=== PATIENT | female | born 2005 | race Hispanic/Latino ===

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

== ENCOUNTER → 2023-03-25 | Outpatient (CLI) | payer OTHER ==
[2023-03-25 12:37] LABS: BASOPHILS # (AUTO) 0.02 K/uL (0.00-0.20); BASOPHILS % (AUTO) 0.2 % (0.0-5.0); EOSINOPHILS # (AUTO) 0.05 K/uL (0.00-0.70); EOSINOPHILS % (AUTO) 0.5 % (0.0-8.0); HEMATOCRIT 39.4 % (36-48); IMMATURE GRANULOCYTE ABSOLUTE 0.02 K/uL (0-1); LYMPHOCYTES # (AUTO) 2.8 K/uL (1.0-4.8); LYMPHOCYTES % (AUTO) 25.7 % (21.0-51.0); MEAN CORPUSCULAR HEMOGLOBIN 28.9 pg (27.0-33.0); MEAN CORPUSCULAR VOLUME 87.6 fL (80-100); MONOCYTES # (AUTO) 0.5 K/uL (0.1-1.0); NEUTROPHILS # (AUTO) 7.3 K/uL (1.8-7.7); NEUTROPHILS % (AUTO) 68.4 % (40.0-77.0); PLATELET COUNT (AUTO) 333 K/uL (130-400); RED CELL DISTRIBUTION WIDTH 12.6 % (11.0-15.5); WHITE BLOOD COUNT (AUTO) 10.7 K/uL (4.8-10.8)
[2023-03-25 13:09] LABS: ALBUMIN 3.8 g/dL (3.5-5.0); BILIRUBIN,TOTAL 0.2 mg/dL (0.2-1.0); CREATININE 0.6 mg/dL (0.5-1.5); POTASSIUM 4.1 mmol/L (3.5-5.1); THYROID STIMULATING HORMONE 1.61 uIU/mL (0.36-3.74); TOTAL PROTEIN, SERUM 7.9 g/dL (6.0-8.3)
== END | disposition home or self-care (01) ==
LOC: LAB 08:18
PROVIDERS: ATTEND Family Medicine
DX: Z13.0 Encounter for screening for diseases of the blood and blood-forming organs and certain disorders involving the immune mechanism (principal); Z13.1 Encounter for screening for diabetes mellitus; Z13.220 Encounter for screening for lipoid disorders; Z13.29 Encounter for screening for other suspected endocrine disorder
CPT/HCPCS: 36415; 80053; 80061; 83036; 84443; 85025

== ENCOUNTER → 2023-08-21 | Outpatient (CLI) | payer OTHER ==
[~2023-08-21] MED LIST changes: +BROM118S48 PO; +FLUT16H NASAL
[2023-08-21 11:06] LABS: HEMOGLOBIN A1C 5.3 % (4.0-6.0)
[2023-08-21 11:28] LABS: ALBUMIN 3.4 g/dL (3.5-5.0); BILIRUBIN,TOTAL 0.3 mg/dL (0.2-1.0); CREATININE 0.6 mg/dL (0.5-1.5); POTASSIUM 3.7 mmol/L (3.5-5.1); THYROID STIMULATING HORMONE 2.07 uIU/mL (0.36-3.74); TOTAL PROTEIN, SERUM 7.3 g/dL (6.0-8.3)
== END | disposition home or self-care (01) ==
LOC: LAB 10:00
PROVIDERS: ATTEND Psychiatry & Neurology Vascular Neurology
DX: N91.2 Amenorrhea, unspecified (principal); R73.09 Other abnormal glucose
CPT/HCPCS: 36415; 80053; 80400; 82670; 83001; 83002; 83036; 84144; 84146; 84402; 84403; 84443

== ENCOUNTER 2023-09-02 13:24 | Emergency (ER) | payer OTHER ==
[~2023-09-02] VITALS: Ht 165.1 cm; Wt 113.4 kg
[~2023-09-02 13:24] MED LIST changes: -BROM118S48 PO; -FLUT16H NASAL
[2023-09-02 14:02] LABS: RAPID GROUP A STREP negative (NEGATIVE)
[2023-09-02 14:04] LABS: SARS-CoV-2, RNA, NAAT NEGATIVE SARS CoV-2 (NEGATIVE)
[2023-09-02 14:12] LABS: INFLUENZA TYPE A Negative For Type A (NEGATIVE); INFLUENZA TYPE B Negative For Type B (NEGATIVE)
[2023-09-02] MEDS ORDERED: BROM118S48 PO (15:28)
[2023-09-02] MEDS ORDERED: FLUT16H NASAL (15:28)
[2023-09-02 15:29] VITALS: BP 135/71; PULSE 98; RESP 18; O2SAT 100
== END 2023-09-02 15:32 | disposition home or self-care (01) ==
LOC: EDH 13:24
DX: A49.1 Streptococcal infection, unspecified site (principal); J06.9 Acute upper respiratory infection, unspecified; Z20.822 Contact with and (suspected) exposure to COVID-19; Z79.899 Other long term (current) drug therapy; Z88.8 Allergy status to other drugs, medicaments and biological substances
CPT/HCPCS: 71045; 87635; 87804; 87880

== ENCOUNTER → 2024-01-07 | Outpatient (CLI) | payer OTHER ==
[~2024-01-07] MED LIST changes: +BROM118S48 PO; +FLUT16H NASAL
[2024-01-07 09:10] LABS: CREATININE 0.6 mg/dL (0.5-1.0); POTASSIUM 3.9 mmol/L (3.5-5.1)
== END | disposition home or self-care (01) ==
LOC: LAB 08:30
PROVIDERS: ATTEND Internal Medicine
DX: E28.2 Polycystic ovarian syndrome (principal); E24.9 Cushing's syndrome, unspecified
CPT/HCPCS: 36415; 80048; 80400; 82533; 82542; 82627; 83498

== ENCOUNTER → 2025-04-03 | Outpatient (CLI) | payer OTHER ==
--- NOTE | 2025-04-04 12:39 | HMCIMG ---
EXAM: CR Left Knee, 3 views. CLINICAL HISTORY: Pain. COMPARISON: None provided. FINDINGS: No acute fracture or aggressive appearing osseous lesion. Joint spaces are within normal limits. There is no joint effusion appreciated. The soft tissues are unremarkable. IMPRESSION: 1. No acute findings. /[place]
== END | disposition home or self-care (01) ==
LOC: RAH 13:35
PROVIDERS: ATTEND Family Medicine
DX: G89.29 Other chronic pain (principal); M25.562 Pain in left knee
CPT/HCPCS: 73562